=== PATIENT | female | born 1985 | race Hispanic/Latino ===

== ENCOUNTER 2017-10-16 15:25 | Emergency (ER) | payer MEDICAID ==
[2017-10-16 15:50] VITALS: BP 108/60
== END 2017-10-17 00:51 | disposition left against medical advice (07) ==
LOC: ED 15:25
DX: R05 Cough (principal); Z53.21 Procedure and treatment not carried out due to patient leaving prior to being seen by health care provider
CPT/HCPCS: 87400; 93005; 93010

== ENCOUNTER 2018-02-17 22:45 | Emergency (ER) | payer SELFPAY ==
[2018-02-17] MEDS ORDERED: MAGNESIUM SULFATE 2GM/50ML 2 GM/50 ML BAG IV ONE (23:15)
--- NOTE | 2018-02-17 23:20 | Emergency Department Report ---
HPI - General Chief Complaint: Dyspnea/Respdistress Time Seen by Provider: 02/17/18 23:06 - HPI HPI: Room 7 The patient is a 32-year-old female presenting with chief complaint of shortness of breath. The patient states she went on an outing with her family and at 18:00 she began having shortness of breath consistent with her asthma attacks. The patient states she was given a nebulizer at the recreational facility which improved her breathing but she was still wheezing. The patient states she is able to come home but her shortness of breath gradually worsened prompting her to come to the ED for evaluation. The patient admits to a nonproductive cough. Patient denies any history of fever. Patient complains of chest tightness and back tightness from her increased work of breathing. Location: Lungs Duration: [See above] Quality: Tightness/wheezing Severity: Moderate Modifying factors: [see above] Context: [see above] Mode of transportation: [not driving] ED Past Medical Hx - Past Medical History Previous Medical History?: Yes Hx Asthma: Yes Additional medical history: Irregular menstrual cycles, 3 vaginal delivery - Surgical History Past Surgical History?: No - Family History Family history: no significant - Social History Smoking Status: Current Some Day Smoker (Black & milds) Substance Use Type: Alcohol (occasional) - Medications Home Medications: Home Medications Medication Instructions Recorded Confirmed Last Taken Type Acetaminophen [Tylenol] 650 mg PO Q6HR PRN 01/30/16 01/30/16 01/29/16 History Azithromycin [Zithromax TAB] 250 mg PO QDAY #6 tablet 01/30/16 Unknown Rx predniSONE [Deltasone] 50 mg PO QDAY #5 tab 01/30/16 Unknown Rx ALBUTEROL Inhaler [ProAir HFA 2 puff IH QID PRN #1 device 02/18/18 Unknown Rx Inhaler] Nebulizer [Aeroneb Go Nebulizer] 1 each MC QID PRN #1 each 02/18/18 Unknown Rx Prednisone [predniSONE 10 mg 10 mg PO .TAPER #1 tab.ds.pk 02/18/18 Unknown Rx (6-Day Pack, 21 Tabs)] ED Review of Systems ROS: Stated complaint: MILA Other details as noted in HPI Constitutional: denies: fever Eyes: denies: eye pain ENT: denies: throat pain Respiratory: cough, shortness of breath, wheezing Gastrointestinal: denies: abdominal pain Genitourinary: denies: dysuria Musculoskeletal: back pain Neurological: denies: headache Physical Exam - Physical Exam Vital Signs: Vital Signs 02/17/18 02/17/18 23:05 23:12 Temperature 97.7 F Pulse Rate 82 Respiratory 22 22 Rate Blood Pressure 129/91 Blood Pressure 129/91 [Right] O2 Sat by Pulse 100 100 Oximetry Physical Exam: GENERAL: The patient is well-developed well-nourished female sitting on stretcher not appearing to be in acute distress. [] HEENT: Normocephalic. Atraumatic. Extraocular motions are intact. Patient has moist mucous membranes. NECK: Supple. Trachea midline CHEST/LUNGS: No wheezing auscultated. There is no respiratory distress noted however patient still complains of increased work of breathing HEART/CARDIOVASCULAR: Regular. There is no tachycardia. There is no gallop rub or murmur. ABDOMEN: Abdomen is soft, nontender. Patient has normal bowel sounds. There is no abdominal distention. SKIN: There is no rash. There is no edema. There is no diaphoresis. NEURO: The patient is awake, alert, and oriented. The patient is cooperative. The patient has normal speech MUSCULOSKELETAL: There is no evidence of acute injury. ED Course Vital Signs 02/17/18 02/17/18 23:05 23:12 Temperature 97.7 F Pulse Rate 82 Respiratory 22 22 Rate Blood Pressure 129/91 Blood Pressure 129/91 [Right] O2 Sat by Pulse 100 100 Oximetry - Reevaluation(s) Reevaluation #1: 02/18/18 00:16 Patient states she feels improved after receiving steroids. I discussed with the patient her elevated d-dimer and need for CT angiogram chest Reevaluation #2: 02/18/18 03:13 Patient states she feels improved and is comfortable going home. Strong warnings given. ED Medical Decision Making - Lab Data Result diagrams: 02/17/18 23:25 02/17/18 23:25 Laboratory Tests 02/17/18 02/17/18 02/17/18 23:25 23:25 23:25 WBC 8.8 RBC 4.49 Hgb 14.0 Hct 41.3 MCV 92 MCH 31 MCHC 34 RDW 12.8 L Plt Count 291 Lymph % (Auto) 40.0 H [place] % (Auto) 6.9 Eos % (Auto) 10.1 H Baso % (Auto) 0.8 Lymph # 3.5 [place] # 0.6 Eos # 0.9 H Baso # 0.1 Seg Neutrophils % 42.2 Seg Neutrophils # 3.7 D-Dimer Sodium 141 Potassium 3.2 L Chloride 102.9 Carbon Dioxide 22 Anion Gap 19 BUN 12 Creatinine 1.1 Estimated GFR 57 BUN/Creatinine Ratio 11 Glucose 105 H Calcium 9.4 Total Creatine Kinase 91 CK-MB (CK-2) 1.3 CK-MB (CK-2) Rel Index 1.4 Troponin T < 0.010 NT-Pro-B Natriuret Pep 86.94 02/17/18 23:25 WBC RBC Hgb Hct MCV MCH MCHC RDW Plt Count Lymph % (Auto) [place] % (Auto) Eos % (Auto) Baso % (Auto) Lymph # [place] # Eos # Baso # Seg Neutrophils % Seg Neutrophils # D-Dimer 842.78 H Sodium Potassium Chloride Carbon Dioxide Anion Gap BUN Creatinine Estimated GFR BUN/Creatinine Ratio Glucose Calcium Total Creatine Kinase CK-MB (CK-2) CK-MB (CK-2) Rel Index Troponin T NT-Pro-B Natriuret Pep - EKG Data -: EKG Interpreted by Me EKG shows normal: sinus rhythm Rate: normal - EKG Data When compared to previous EKG there are: previous EKG unavailable Interpretation: nonspecific ST-T wave maarilis (early repolarization) - Radiology Data Radiology results: report reviewed (CT chest), image reviewed (chest x-ray, CT chest) interpreted by me: Chest x-ray-no focal infiltrates, [place] [address] Cat Scan Report Signed Patient: LISET BAEZ MR#: [id number] : 1985 Acct:[id number] Age/Sex: 32 / F ADM Date: 02/17/18 Loc: ED Attending Dr: Ordering Physician: JOSÉ MIGUEL BARBOUR MD Date of Service: 02/18/18 Procedure(s): CT angio chest Accession Number(s): [id number] cc: JOSÉ MIGUEL BARBOUR MD FINAL REPORT PROCEDURE: CT ANGIO CHEST TECHNIQUE: Computerized axial tomographic angiography of the chest and pulmonary arteries was performed after the IV injection of iodinated nonionic contrast. The image data was postprocessed using maximum intensity projection (MIP) and 2-dimensional multiplanar reformatted (MPR) techniques. The examination is specifically tailored to the evaluation of the pulmonary arteries per clinical request. HISTORY: Short of breath 786.09, chest pain 786.50, shortness of breath COMPARISON: No prior studies are available for comparison. FINDINGS: Heart and pericardium: Normal. Thoracic aorta: Normal. Pulmonary vasculature: Normal. No pulmonary emboli. Lymph nodes: No enlarged thoracic lymph nodes. Lungs: Normal. Pleural space: No effusion, thickening, or pneumothorax. Musculoskeletal structures: No significant abnormality. Upper abdominal structures: No significant abnormality. IMPRESSION: Normal Examination. Transcribed By: CO Dictated By: LARRY SHERMAN MD Electronically Authenticated By: LARRY SHERMAN MD Signed Date/Time: 02/18/18140 DD/ 0 TD/TT: 02/18/18140 - Differential Diagnosis asthma exacerbation, PE, ACS, pneumonia, pneumothorax Critical care attestation.: If time is entered above; I have spent that time in minutes in the direct care of this critically ill patient, excluding procedure time. ED Disposition Clinical Impression: Shortness of breath, Asthma exacerbation Disposition: DC-01 TO HOME OR SELFCARE Is pt being admited?: No Does the pt Need Aspirin: No Condition: Stable Instructions: Asthma (ED) Additional Instructions: Return to the emergency department immediately should you develop worsening symptoms, fever, inability to tolerate food or liquid or any other concerns. Prescriptions: ALBUTEROL Inhaler [ProAir HFA Inhaler] 2 puff IH QID PRN #1 device PRN Reason: Shortness Of Breath Nebulizer [Aeroneb Go Nebulizer] 1 each MC QID PRN #1 each PRN Reason: Shortness Of Breath Prednisone [predniSONE 10 mg (6-Day Pack, 21 Tabs)] 10 mg PO .TAPER #1 tab.ds.pk Referrals: LUCINDA AYALA MD [Staff Physician] - 3-5 Days (Dr. Ayala is a primary physician. Please follow up with him to be established as a patient) Time of Disposition: 03:15
[2018-02-17] MEDS ORDERED: ATROVENT IH ONE (23:34)
[2018-02-17] MEDS ORDERED: PROVENTIL IH ONE (23:34)
[2018-02-17 23:49] LABS: Basophils # (Auto) 0.1 K/mm3 (0.0-0.1); Basophils % (Auto) 0.8 % (0.0-1.8); Eosinophils # (Auto) 0.9 K/mm3 (0.0-0.4); Eosinophils % (Auto) 10.1 % (0.0-4.3); Hematocrit 41.3 % (30.3-42.9); Lymphocytes # (Auto) 3.5 K/mm3 (1.2-5.4); Mean Corpuscular HGB Conc 34 % (30-34); Mean Corpuscular Hemoglobin 31 pg (28-32); Mean Corpuscular Volume 92 fl (79-97); Monocytes # (Auto) 0.6 K/mm3 (0.0-0.8); Monocytes % (Auto) 6.9 % (0.0-7.3); Platelet Count 291 K/mm3 (140-440); Red Blood Count 4.49 M/mm3 (3.65-5.03); Red Cell Distribution Width 12.8 % (13.2-15.2)
[2018-02-18 00:02] LABS: Calcium 9.4 mg/dL (8.4-10.2)
[2018-02-18 00:04] LABS: Creatine Kinase MB 1.3 ng/mL (0.0-4.0)
--- NOTE | 2018-02-18 01:33 | XRay Report ---
FINAL REPORT PROCEDURE: XR CHEST ROUTINE 2V TECHNIQUE: A portable AP chest radiograph was obtained at 02/17/2018 23:13 (EST) . CPT 34409 HISTORY: shortness of breath COMPARISON: No prior studies are available for comparison. FINDINGS: Heart: Normal. Mediastinum/Vessels: Normal. Lungs/Pleural space: Lungs are expanded and clear. There are no infiltrates, effusions or pneumothoraces.. Bony thorax: No acute osseous abnormality. Life support devices: None. IMPRESSION: No acute cardiopulmonary abnormality.
--- NOTE | 2018-02-18 02:33 | Cat Scan Report ---
FINAL REPORT PROCEDURE: CT ANGIO CHEST TECHNIQUE: Computerized axial tomographic angiography of the chest and pulmonary arteries was performed after the IV injection of iodinated nonionic contrast. The image data was postprocessed using maximum intensity projection (MIP) and 2-dimensional multiplanar reformatted (MPR) techniques. The examination is specifically tailored to the evaluation of the pulmonary arteries per clinical request. HISTORY: Short of breath 786.09, chest pain 786.50, shortness of breath COMPARISON: No prior studies are available for comparison. FINDINGS: Heart and pericardium: Normal. Thoracic aorta: Normal. Pulmonary vasculature: Normal. No pulmonary emboli. Lymph nodes: No enlarged thoracic lymph nodes. Lungs: Normal. Pleural space: No effusion, thickening, or pneumothorax. Musculoskeletal structures: No significant abnormality. Upper abdominal structures: No significant abnormality. IMPRESSION: Normal Examination.
[2018-02-18 03:06] VITALS: BP 111/86
[2018-02-18] MEDS ORDERED: K-DUR PO ONE (03:12)
== END 2018-02-18 03:31 | disposition home or self-care (01) ==
LOC: ED 22:45
DX: J45.901 Unspecified asthma with (acute) exacerbation (principal); F17.200 Nicotine dependence, unspecified, uncomplicated
CPT/HCPCS: 36415; 71046; 71275; 80048; 82550; 82553; 83880; 84484; 85025; 85379; 93005; 93010; 96365; 96375; 99285; J2930; J3475; Q9967

== ENCOUNTER 2019-01-12 16:32 | Emergency (ER) | payer MEDICAID ==
[2019-01-12 16:45] VITALS: BP 162/69
[2019-01-12] MEDS ORDERED: DECADRON IM ONE (16:45)
[2019-01-12] MEDS ORDERED: ATROVENT IH ONE (16:45)
[2019-01-12] MEDS ORDERED: PROVENTIL IH ONE ×2 (16:45→16:48)
--- NOTE | 2019-01-12 17:15 | XRay Report ---
PROCEDURE: XR CHEST 1V AP TECHNIQUE: One view HISTORY: wheezing, sob COMPARISONS: 02/17/2018 FINDINGS: No infiltrate, pleural effusion, or pneumothorax seen. The cardiomediastinal silhouette is normal. Mild thoracic levoscoliosis. IMPRESSION: No acute abnormality identified. . This document is electronically signed by Dieter Chavarria MD., January 12 2019 05:12:48 PM ET
--- NOTE | 2019-01-12 18:25 | Emergency Department Report ---
ED Asthma HPI - General Chief Complaint: Adult Asthma Stated Complaint: ASTHMA Time Seen by Provider: 01/12/19 16:42 Source: patient Mode of arrival: Ambulatory Limitations: No Limitations - History of Present Illness Initial Comments: This is a 33-year-old female nontoxic, well nourished in appearance, no acute signs of distress presents to the ED with c/o of acute on chronic asthma exacerbation. Patient stated she used her inhaler with no relief. Patient stated that she has seasonal allergies to pollen and has been outside that might have triggered her symptoms. Patient denies any cough. Patient denies any sick contact. Patient denies any recent travels, long car, recent hospital stays. Patient denies any calf pain or calf tenderness. Patient denies any chest pain, short of breath, fever, chills, nausea, vomiting, hemoptysis, numbness, tingling, headache or stiff neck. Past medical history includes asthma. MD Complaint: "asthma attack", shortness of breath, wheezing -: This afternoon Asthma History: childhood onset Severity: mild Context: none known Associated Symptoms: none Treatments Prior to Arrival: inhaled bronchodilator - Related Data Current Asthma Therapy: inhaled bronchodilator Home Medications Medication Instructions Recorded Confirmed Last Taken Acetaminophen [Tylenol] 650 mg PO Q6HR PRN 01/30/16 01/30/16 01/29/16 Previous Rx's Medication Instructions Recorded Last Taken Type Azithromycin [Zithromax TAB] 250 mg PO QDAY #6 tablet 01/30/16 Unknown Rx predniSONE [Deltasone] 50 mg PO QDAY #5 tab 01/30/16 Unknown Rx ALBUTEROL Inhaler (OR & NICU) 2 puff IH QID PRN #1 device 02/18/18 Unknown Rx [ProAir HFA Inhaler] Nebulizer [Aeroneb Go Nebulizer] 1 each MC QID PRN #1 each 02/18/18 Unknown Rx Prednisone [predniSONE 10 mg 10 mg PO .TAPER #1 tab.ds.pk 02/18/18 Unknown Rx (6-Day Pack, 21 Tabs)] ALBUTEROL Inhaler(NF) [VENTOLIN 2 puff IH Q4-6H PRN #1 inha 01/12/19 Unknown Rx Inhaler(NF)] ALBUTEROL NEB's [Proventil 0.083% 2.5 mg IH TID PRN #1 box 01/12/19 Unknown Rx NEBS] Prednisone [predniSONE 10 mg 10 mg PO .TAPER #1 tab.ds.pk 01/12/19 Unknown Rx (6-Day Pack, 21 Tabs)] Allergies Allergy/AdvReac Type Severity Reaction Status Date / Time sulfamethoxazole Allergy Hives Verified 01/12/19 16:34 [From Bactrim] trimethoprim [From Bactrim] Allergy Hives Verified 01/12/19 16:34 ED Review of Systems ROS: Stated complaint: ASTHMA Other details as noted in HPI Constitutional: denies: chills, fever Eyes: denies: eye pain, eye discharge, vision change ENT: denies: ear pain, throat pain Respiratory: shortness of breath, wheezing. denies: cough Cardiovascular: denies: chest pain, palpitations Endocrine: no symptoms reported Gastrointestinal: denies: abdominal pain, nausea, diarrhea Genitourinary: denies: urgency, dysuria, discharge Musculoskeletal: denies: back pain, joint swelling, arthralgia Skin: denies: rash, lesions Neurological: denies: headache, weakness, paresthesias Psychiatric: denies: anxiety, depression Hematological/Lymphatic: denies: easy bleeding, easy bruising ED Past Medical Hx - Past Medical History Hx Asthma: Yes Additional medical history: Irregular menstrual cycles, 3 vaginal delivery - Social History Smoking Status: Never Smoker Substance Use Type: None - Medications Home Medications: Home Medications Medication Instructions Recorded Confirmed Last Taken Type Acetaminophen [Tylenol] 650 mg PO Q6HR PRN 01/30/16 01/30/16 01/29/16 History Azithromycin [Zithromax TAB] 250 mg PO QDAY #6 tablet 01/30/16 Unknown Rx predniSONE [Deltasone] 50 mg PO QDAY #5 tab 01/30/16 Unknown Rx ALBUTEROL Inhaler (OR & NICU) 2 puff IH QID PRN #1 device 02/18/18 Unknown Rx [ProAir HFA Inhaler] Nebulizer [Aeroneb Go Nebulizer] 1 each MC QID PRN #1 each 02/18/18 Unknown Rx Prednisone [predniSONE 10 mg 10 mg PO .TAPER #1 tab.ds.pk 02/18/18 Unknown Rx (6-Day Pack, 21 Tabs)] ALBUTEROL Inhaler(NF) [VENTOLIN 2 puff IH Q4-6H PRN #1 inha 01/12/19 Unknown Rx Inhaler(NF)] ALBUTEROL NEB's [Proventil 0.083% 2.5 mg IH TID PRN #1 box 01/12/19 Unknown Rx NEBS] Prednisone [predniSONE 10 mg 10 mg PO .TAPER #1 tab.ds.pk 01/12/19 Unknown Rx (6-Day Pack, 21 Tabs)] ED Physical Exam - General Limitations: No Limitations General appearance: alert, in no apparent distress - Head Head exam: Present: atraumatic, normocephalic - Eye Eye exam: Present: normal appearance - Neck Neck exam: Present: normal inspection, full ROM. Absent: tenderness, meningismus, lymphadenopathy - Respiratory Respiratory exam: Present: normal lung sounds bilaterally, wheezes (diffuse upper and lower lobes). Absent: respiratory distress, rales, rhonchi, stridor, chest wall tenderness, accessory muscle use, decreased breath sounds, prolonged expiratory - Cardiovascular Cardiovascular Exam: Present: regular rate, normal rhythm, normal heart sounds. Absent: irregular rhythm, systolic murmur, diastolic murmur, rubs, gallop - Extremities Exam Extremities exam: Present: normal inspection, full ROM - Back Exam Back exam: Present: normal inspection, full ROM - Neurological Exam Neurological exam: Present: alert, oriented X3 - Psychiatric Psychiatric exam: Present: normal affect, normal mood - Skin Skin exam: Present: warm, dry, intact, normal color. Absent: rash ED Course Vital Signs 01/12/19 16:41 Temperature 97.4 F L Pulse Rate 97 H Respiratory 24 Rate Blood Pressure 162/69 O2 Sat by Pulse 98 Oximetry - Reevaluation(s) Reevaluation #1: 01/12/19 18:21 Patient is speaking in full sentences with no signs of distress noted. ED Medical Decision Making - Medical Decision Making This is a 33-year-old female that presents with asthma exacerbation. Patient is stable and was examined by me. Chest x-ray has been obtained and dictated by the radiologist within normal limits. Patient is notified of the x-ray report with no questions noted by the patient. Patient did receive breathing treatment and steroids in the ED which patient the symptoms has resolved and subsided. Posttreatment and there is no wheezing upon auscultation. Patient is discharged with albuterol and prednisone. Patient was referred to Follow-up with a primary care doctor in 3-5 days or if symptoms worsen and continue return to emergency room as soon as possible. At time of discharge, the patient does not seem toxic or ill in appearance. No acute signs of distress noted. Patient agrees to discharge treatment plan of care. No further questions noted by the patient. This chart is dictated with using [employer]ation [employer] Critical care attestation.: If time is entered above; I have spent that time in minutes in the direct care of this critically ill patient, excluding procedure time. ED Disposition Clinical Impression: Asthma exacerbation Qualifiers: Asthma severity: mild Asthma persistence: intermittent Qualified Code(s): J45.21 - Mild intermittent asthma with (acute) exacerbation Disposition: TO HOME OR SELFCARE Is pt being admited?: No Does the pt Need Aspirin: No Condition: Stable Instructions: Asthma (ED) Prescriptions: Prednisone [predniSONE 10 mg (6-Day Pack, 21 Tabs)] 10 mg PO .TAPER #1 tab.ds.pk ALBUTEROL NEB's [Proventil 0.083% NEBS] 2.5 mg IH TID PRN #1 box PRN Reason: Wheezing ALBUTEROL Inhaler(NF) [VENTOLIN Inhaler(NF)] 2 puff IH Q4-6H PRN #1 inha PRN Reason: Wheezing Referrals: RY CHEN MD [Primary Care Provider] - 3-5 Days PRIMARY CAREMD [Referring] - 3-5 Days JET SOTO MD [Staff Physician] - 3-5 Days [facility] [Outside] - 3-5 Days [facility] [Outside] - 3-5 Days Forms: Work/School Release Form(ED)
== END 2019-01-12 18:44 | disposition home or self-care (01) ==
LOC: ED 16:32
DX: J45.21 Mild intermittent asthma with (acute) exacerbation (principal); Z88.1 Allergy status to other antibiotic agents; Z88.2 Allergy status to sulfonamides
CPT/HCPCS: 71045; 94640; 96372; 99283; J1100

== ENCOUNTER 2019-08-29 00:10 | Emergency (ER) | payer MEDICAID ==
[2019-08-29] MEDS ORDERED: IBUPROFEN 600 MG TAB PO ONE (01:06)
[2019-08-29] MEDS ORDERED: TETANUS,DIPH,PERTUSS(ACELL) VACCINE 0.5 ML SYRINGE IM ONE (01:06)
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
[2019-08-29 01:38] LABS: Basophils # (Auto) 0.1 K/mm3 (0.0-0.1); Basophils % (Auto) 0.9 % (0.0-1.8); Eosinophils # (Auto) 0.2 K/mm3 (0.0-0.4); Eosinophils % (Auto) 2.1 % (0.0-4.3); Hematocrit 48.8 % (30.3-42.9); Hemoglobin 16.8 gm/dl (10.1-14.3); Lymphocytes # (Auto) 2.7 K/mm3 (1.2-5.4); Mean Corpuscular HGB Conc 34 % (30-34); Mean Corpuscular Volume 95 fl (79-97); Monocytes # (Auto) 0.6 K/mm3 (0.0-0.8); Monocytes % (Auto) 6.1 % (0.0-7.3); Platelet Count 414 K/mm3 (140-440); Red Blood Count 5.13 M/mm3 (3.65-5.03); Red Cell Distribution Width 13.1 % (13.2-15.2)
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
[2019-08-29 01:54] LABS: Alanine Aminotransferase 25 units/L (7-56); Albumin 4.5 g/dL (3.9-5); BUN/Creatinine Ratio 8; Blood Urea Nitrogen 7 mg/dL (7-17); Calcium 9.5 mg/dL (8.4-10.2); Hemolysis Index 6
[2019-08-29] MEDS ORDERED: SODIUM CHLORIDE 0.9% 1000 ML 1,000 ML IV ONE (02:09)
[2019-08-29 02:46] LABS: Bilirubin,Urine NEG (Negative); Blood,Urine SM (Negative); Color,Urine Yellow (Yellow); Mucus,Urine FEW /HPF; Protein,Urine <15 mg/dL mg/dL (Negative); Urobilinogen,Urine < 2.0 mg/dL (<2.0)
[2019-08-29 02:52] LABS: Amphetamine Screen,Urine PRESUMPTIVE NEGATIVE; Benzodiazepines Screen,Urine PRESUMPTIVE NEGATIVE; Cannabinoid Screen,Urine PRESUMPTIVE NEGATIVE; Methadone Screen,Urine PRESUMPTIVE NEGATIVE; Opiate Screen,Urine PRESUMPTIVE NEGATIVE
[2019-08-29 02:59] LABS: Cocaine Screen,Urine PRESUMPTIVE POSITIVE
[2019-08-29] MEDS ORDERED: ACETAMINOPHEN 325 MG TAB PO ONE (04:06)
[2019-08-29] MEDS ORDERED: ACETAMINOPHEN 500 MG TAB PO ONE (08:00)
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
[2019-08-29] MEDS: hydrOXYzine PAMOATE 25 MG CAP PO SCH ×2 (10:49→22:10)
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
[2019-08-30] MEDS: hydrOXYzine PAMOATE 25 MG CAP PO SCH (10:09)
[2019-08-30 10:29] VITALS: BP 121/69
== END 2019-08-30 12:55 ==
LOC: EEVIPCON 00:10 → ED 00:10
DX: S01.511A Laceration without foreign body of lip, initial encounter (principal); R45.851 Suicidal ideations; F10.929 Alcohol use, unspecified with intoxication, unspecified; F14.10 Cocaine abuse, uncomplicated; J45.909 Unspecified asthma, uncomplicated; Z88.2 Allergy status to sulfonamides; Z88.8 Allergy status to other drugs, medicaments and biological substances; Y04.8XXA Assault by other bodily force, initial encounter; Y93.89 Activity, other specified; Y92.89 Other specified places as the place of occurrence of the external cause; Y99.8 Other external cause status
CPT/HCPCS: 36415; 70486; 80053; 80307; 81001; 82550; 84703; 85025; 90471; 90715; 99285; J7030; 80320; G0480; Q0177